=== PATIENT | female | born 1970 | race Caucasian/White ===

== ENCOUNTER → 2020-12-21 | Outpatient (CLI) | payer SELFPAY | END | disposition home or self-care (01) | LOC: LAB 17:21 | PROVIDERS: ATTEND Internal Medicine | DX: Z11.52 Encounter for screening for COVID-19 (principal); Z20.822 Contact with and (suspected) exposure to COVID-19 | CPT/HCPCS: 87633 ==

== ENCOUNTER → 2021-03-03 | Outpatient (CLI) | payer OTHER ==
[2021-03-03 09:05] LABS: BASOPHIL % 0.3 % (0.0-0.2); EOSINOPHIL # 0.2 10^3/uL (0.0-0.2); EOSINOPHIL % 2.7 % (0.0-5.0); LYMPHOCYTES # 2.55 10^3/uL1 (1.0-4.8); LYMPHOCYTES % 40.3 % (24.0-44.0); MEAN CORP HGB 24.4 pg (26-34); MONOCYTES # 0.4 10^3/uL (0.3-0.8); NEUTROPHIL # 3.2 10^3/uL (1.8-7.7); NEUTROPHILS % 50.5 % (41.0-85.0); PLATELET COUNT 331 10^3/uL (150-400); RED CELL DISTRIBUTION WIDTH 15.5 % (11.5-14.5)
[2021-03-03 09:46] LABS: CALCIUM 9.1 mg/dL (8.4-10.5); CARBON DIOXIDE 28.3 mmol/L (20.0-32)
== END | disposition home or self-care (01) ==
LOC: LAB 08:48
PROVIDERS: ATTEND Internal Medicine
DX: R53.82 Chronic fatigue, unspecified (principal); R63.5 Abnormal weight gain; Z79.899 Other long term (current) drug therapy
CPT/HCPCS: 36415; 80053; 80061; 82306; 82607; 82746; 83036; 84439; 84443; 85025

== ENCOUNTER → 2021-04-12 | Outpatient (CLI) | payer OTHER | END | disposition home or self-care (01) | LOC: NPLAB 15:00 | PROVIDERS: ATTEND Internal Medicine | DX: B34.9 Viral infection, unspecified (principal); Z20.822 Contact with and (suspected) exposure to COVID-19 | CPT/HCPCS: 87633 ==